=== PATIENT | female | born 1960 | race Caucasian/White ===

== ENCOUNTER 2021-10-26 08:35 | Day surgery (SDC) | payer OTHER ==
[~2021-10-26] VITALS: Ht 152.4 cm; Wt 80.8 kg
[~2021-10-26 08:35] MED LIST: COSAMIN; COSAMIN ASU 2001 CAP PO; PRILOSEC 20MG20 MG PO; TRILIPIX 135MG; VIT D; ZOCOR 20MG20 MG
[2021-10-26 09:51] VITALS: BP 132/86; PULSE 81; TEMP 97.4
[2021-10-26 11:25] VITALS: BP 140/82; PULSE 87; TEMP 97.4
--- NOTE | 2021-10-26 11:25 | NUR ---
The patient arrived back to [facility] from the endoscopy suite at this time. The patient ambulated from the cart to the recliner in her room with the stand by assistance of two nurses and appeared to tolerate the activity well. Vital signs were started at this time. The patient denies wanting anything to eat or drink at this time. The patient's was brought back to be at her bedside. Call light is within reach. Denies any further needs.
[2021-10-26 11:40] VITALS: BP 143/77; PULSE 83
--- NOTE | 2021-10-26 11:40 | NUR ---
The patient appears to be resting comfortably in the recliner at this time. The patient has been drinking some of her 's water and denies wanting anything further at this time. She is waiting to speak to the doctor prior to discharge.
[2021-10-26 11:55] VITALS: BP 137/81; PULSE 81
--- NOTE | 2021-10-26 11:55 | NUR ---
The patient is sitting up in the recliner and appears to be resting comfortably at this time.
[2021-10-26 12:15] VITALS: BP 151/84; PULSE 76
--- NOTE | 2021-10-26 12:15 | NUR ---
Dr. Jung is at the patient's bedside to speak with the patient and her about the findings of the procedure.
--- NOTE | 2021-10-26 12:20 | NUR ---
Discharge instructions were reviewed with the patient and her at this time. They both verbalized understanding and have no questions for the nurse at this time. The patient's IV to her right hand was removed and a pressure dressing was applied to the site. The nurse instructed the patient to get dressed and notify the staff when she is ready to be escorted out.
--- NOTE | 2021-10-26 12:28 | NUR ---
The patient was escorted out via wheelchair to a private vehicle at this time. The patient's belongings and discharge paperwork were sent with her. The patient's is present to drive her home.
== END 2021-10-26 12:28 | disposition home or self-care (01) ==
LOC: SDCO 08:35
DX: K62.1 Rectal polyp (principal); K29.50 Unspecified chronic gastritis without bleeding; K57.30 Diverticulosis of large intestine without perforation or abscess without bleeding; K64.9 Unspecified hemorrhoids; K76.0 Fatty (change of) liver, not elsewhere classified; F10.10 Alcohol abuse, uncomplicated; M54.9 Dorsalgia, unspecified; G89.29 Other chronic pain; F17.210 Nicotine dependence, cigarettes, uncomplicated; Z90.710 Acquired absence of both cervix and uterus
CPT/HCPCS: J2405; J2704; J7120

== ENCOUNTER → 2022-12-03 | Outpatient (CLI) | payer OTHER | LOC: MHCPAIN 12:54 | DX: M54.6 Pain in thoracic spine (principal); M54.16 Radiculopathy, lumbar region; M47.814 Spondylosis without myelopathy or radiculopathy, thoracic region; M79.2 Neuralgia and neuritis, unspecified | CPT/HCPCS: G0463 ==

== ENCOUNTER 2023-06-25 11:00 | Outpatient (RCR) | payer OTHER | END 2023-07-11 | LOC: WSOT | DX: M79.645 Pain in left finger(s) (principal) ==